=== PATIENT | female | born 1980 ===

== ENCOUNTER 2018-03-02 15:50 | Emergency (ER) | payer SELFPAY ==
[2018-03-02] VITALS (16 sets, daily range): BP systolic 96–123; BP diastolic 58–84; PULSE 59–105; RESP 13–27; TEMP 37.1; O2SAT 96–99
[2018-03-02 16:28] LABS: Abs Immature Grans 0.02 k/cumm (0.0-0.09); Absolute Basophil Count 0.03 k/cumm (0.0-0.2); Absolute Eosinophil Count 0.09 k/cumm (0.0-0.7); Absolute Lymphocyte Count 2.26 k/cumm (1.2-3.4); Absolute Monocyte Count 0.77 k/cumm (0.11-0.7); Absolute Neutrophil Count 5.23 k/cumm (1.2-6.7); Basophils % 0.4; Eosinophils % 1.1; HCT 37.6 % (36.0-46.0); HGB 12.8 g/dL (12.0-15.5); Immature Grans % 0.2; Lymphocytes % 26.9; Mean Corpuscular Hemoglobin 33.5 pg (27.0-33.0); Mean Corpuscular Volume 98.4 fL (80-95); Mean Platelet Volume 11.5 fL (8.0-11.0); Monocytes % 9.2; Neutrophils % 62.2; Platelet Count 177 x1000/uL (130-400); RBC 3.82 m/cumm (4.00-5.20); RBC Distribution Width 11.7 % (11.7-14.6)
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
[2018-03-02 16:46] LABS: ALT 17 U/L (12-78); AST 15 U/L (15-37); Albumin 3.7 g/dL (3.4-5.0); Alkaline Phosphatase 69 U/L (46-116); Anion Gap 9.7 mmol/L (3-11); BUN 16 mg/dL (7-18); Bilirubin, Total 0.4 mg/dL (0.2-1.0); CO2 24.3 mmol/L (21.0-32.0); CREATININE 0.75 mg/dL (0.55-1.02); Calcium 8.8 mg/dL (8.5-10.1); Chloride 104 mmol/L (98-107); Glucose 84 mg/dL (70-100); Magnesium 1.6 mg/dL (1.8-2.4); Sodium 138 mmol/L (136-145); Total Protein 7.2 g/dL (6.4-8.2); Troponin I < 0.02 ng/mL (0.00-0.06)
--- NOTE | 2018-03-02 16:48 | DI.REPORT_ITS ---
SYMPTOM/DIAGNOSIS: CHEST PAIN PA AND LATERAL CHEST: No priors. The heart is normal in size. The lungs are clear. The mediastinal structures and pleura appear intact. CONCLUSION: Normal chest.
[2018-03-02] MEDS: Normal Saline 1,000 ML 1000 ML IV (16:50)
[2018-03-02 17:23] LABS: D-Dimer 387 ng/mlFEU (<500)
[2018-03-02] MEDS: oxyCODONE 5 MG TAB PO (17:33)
--- NOTE | 2018-03-02 18:13 | DI.VRAD_ITS ---
EXAM: XR Chest, 2 Views CLINICAL HISTORY: 37 years old, female; Pain; Chest pain TECHNIQUE: Frontal and lateral views of the chest. COMPARISON: No relevant prior studies available. FINDINGS: No airspace consolidation, pleural effusion or pneumothorax. The cardiomediastinal silhouette is unremarkable. IMPRESSION: No acute findings. Dictated and Authenticated by: Fernando Moreno MD. Ordering:MITCHELL ORNELAS MD
== END 2018-03-02 18:35 | disposition home or self-care (01) ==
PROVIDERS: Emergency Provider Emergency Medicine
DX: R07.89 Other chest pain (principal); R11.0 Nausea; E86.0 Dehydration
CPT/HCPCS: 36415; 80053; 93005; 96361; 96365; 96375; 99284; 71046; 83735; 84484; 85025; 85379; 93010; 99285; J1885